=== PATIENT | male | born 2000 | race Caucasian/White ===

== ENCOUNTER 2023-03-27 22:44 | Emergency (ER) | payer MEDICAID ==
[~2023-03-27] VITALS: Ht 182.9 cm; Wt 136.0 kg
[2023-03-27 23:00] VITALS: BP 156/99
[2023-03-27] MEDS ORDERED: AMOXICILLIN/POTASSIUM CLAVULANATE 875/125MG TAB PO ONE (23:00)
[2023-03-27] MEDS ORDERED: BACITRACIN ZINC OINT UDPKT TOP ONE (23:00)
[2023-03-27] MEDS ORDERED: LIDOCAINE HCL/PF 1% 10 MG/ML 5ML VIAL INFIL ONE (23:00)
[2023-03-27] MEDS ORDERED: IBUPROFEN 600MG TABLET PO ONE (23:00)
[2023-03-28] MEDS ORDERED: AMOX1TAB16 PO (00:06)
[2023-03-28] MEDS ORDERED: IBUP-2029 PO (00:06)
[2023-03-28] MEDS ORDERED: BACI28.32 TP (00:21)
== END 2023-03-28 00:20 | disposition home or self-care (01) ==
LOC: ER 23:32
DX: S01.312A Laceration without foreign body of left ear, initial encounter (principal); W50.3XXA Accidental bite by another person, initial encounter; Y93.89 Activity, other specified; Y92.89 Other specified places as the place of occurrence of the external cause; Y99.8 Other external cause status
CPT/HCPCS: 12013; 99284; J3490; Z7610

== ENCOUNTER 2023-03-31 09:15 | Emergency (ER) | payer OTHER, MEDICAID ==
[~2023-03-31] VITALS: Ht 185.4 cm; Wt 160.0 kg
[~2023-03-31 09:15] MED LIST: AMOX1TAB16 PO; BACI28.32 TP; IBUP-2029 PO
[2023-03-31 09:42] VITALS: RESP 18
[2023-03-31 09:45] VITALS: BP 143/86; PULSE 18; TEMP 98.5; O2SAT 98
== END 2023-03-31 10:37 | disposition home or self-care (01) ==
LOC: ER 09:15
DX: S01.311D Laceration without foreign body of right ear, subsequent encounter (principal); Z48.00 Encounter for change or removal of nonsurgical wound dressing; X58.XXXD Exposure to other specified factors, subsequent encounter
CPT/HCPCS: 99283

== ENCOUNTER 2023-11-21 11:08 | Emergency (ER) | payer OTHER, MEDICAID ==
[~2023-11-21] VITALS: Ht 188 cm; Wt 155.0 kg
[2023-11-21 11:26] VITALS: BP 168/104; PULSE 95; RESP 18; TEMP 98.6; O2SAT 99
[2023-11-21] MEDS ORDERED: ACETAMINOPHEN 325MG TABLET PO ONE (12:00)
== END 2023-11-21 17:20 | disposition left against medical advice (07) ==
LOC: ER 11:08
DX: R51.9 Headache, unspecified (principal); Z53.21 Procedure and treatment not carried out due to patient leaving prior to being seen by health care provider
CPT/HCPCS: 99281